=== PATIENT | female | born 1955 | race Caucasian/White ===

== ENCOUNTER → 2016-12-26 | Outpatient (CLI) | payer MEDICAID ==
[~2016-12-26] MED LIST: ACETAMINOPHEN W1 TA6 PO; ALBUTEROL MDI INH; CEFTIN125 MG PO; CEPHALEXIN500 M1 PO; CIPRO500 MG PO; CLONAZEPAM PO; FLEXERIL 1010 MG/TAB PO; KLONOPIN0.5 MG PO; LAMICTAL25 MG PO; LORTAB 5/500 501 TAB PO; MUSCLE RELAXER; NORCO 325 MG-51 TAB PO; NORCO 325 MG-7.1 TAB PO; PHENERGAN W/CO120 ML PO; PRILOSEC 20MG20 MG PO; PYRIDIUM200 M1 PO; VALTREX PO; WELLBUTRIN SR150 M1 PO; ZITHROMAX Z PA250 MG PO; ZOFRAN 4MG T4 MG/TAB PO
== END ==
LOC: COL.RAD 09:31
DX: M25.542 Pain in joints of left hand (principal); M25.541 Pain in joints of right hand
CPT/HCPCS: J3301; Q9967

== ENCOUNTER → 2017-04-28 | Outpatient (CLI) | payer MEDICAID | LOC: COL.RAD 07:56 | DX: M18.0 Bilateral primary osteoarthritis of first carpometacarpal joints (principal) | CPT/HCPCS: J3301; Q9967 ==